=== PATIENT | male | born 1960 | race Caucasian/White ===

== ENCOUNTER 2019-03-22 19:50 | Emergency (ER) | payer MEDICAID, OTHER ==
[~2019-03-22] VITALS: Ht 185.4 cm; Wt 99.1 kg
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
--- NOTE | 2019-03-22 20:57 | NUR ---
PT SITTING UP IN GURNEY, AWAKE/ALERT. NAD NOTED. HOLDING CONVERSATION WITH FAMILY MEMBER. SPO2 >90% ON 3L BY NC. RR WNL.
[2019-03-22] MEDS: SODIUM CHLORIDE FLUSH 10ML SYR IVF ONE (21:00)
--- NOTE | 2019-03-22 21:18 | NUR ---
IV ESTABLISHED. BC X 1 DRAWN WITH IV START. LAB IN TO DRAW SECOND
[2019-03-22] MEDS ORDERED: ALBUTEROL/IPRATROPIUM 2.5MG/0.5MG, 3 ML ONE ×2 (21:29→23:27)
[2019-03-22 21:30] LABS: BASOPHILS # (AUTO) 0.04 x10^3/uL (0-0.1); BASOPHILS % (AUTO) 0 % (0-1); EOSINOPHILS # (AUTO) 0.24 x10^3/uL (0-0.4); EOSINOPHILS % (AUTO) 3 % (1-7); LYMPHOCYTES # (AUTO) 1.61 x10^3/uL (1-3.4); LYMPHOCYTES % (AUTO) 19 % (22-44); MD NO; MEAN CORPUSCULAR HEMOGLOBIN 30.8 pg (27.5-34.5); MEAN CORPUSCULAR HGB CONC 34.1 g/dL (33.2-36.2); MEAN CORPUSCULAR VOLUME 90.3 fL (81-97); MEAN PLATELET VOLUME 8.8 fL (7.4-10.4); MONOCYTES # (AUTO) 0.87 x10^3/uL (0.2-0.8); MONOCYTES % (AUTO) 10 % (2-9); NEUTROPHILS # (AUTO) 5.63 x10^3/uL (1.8-6.8); NEUTROPHILS % (AUTO) 67 % (42-75); PLATELET COUNT 143 x10^3/uL (130-400); RED BLOOD COUNT 4.95 x10^6/uL (4.38-5.82); RED CELL DISTRIBUTION WIDTH 13.3 % (9.4-14.8)
[2019-03-22] MEDS: ALBUTEROL/IPRATROPIUM 2.5MG/0.5MG, 3 ML NPPB ONE ×2 (21:35→23:00)
--- NOTE | 2019-03-22 21:36 | NUR ---
RT AT BEDSIDE
[2019-03-22 21:43] LABS: ALANINE AMINOTRANSFERASE 29 U/L (12-78); ALBUMIN 2.9 g/dL (3.4-5.0); ANION GAP 5 mmol/L (5-15); CALCIUM 8.2 mg/dL (8.5-10.1); CHLORIDE 111 mmol/L (98-107); CREATININE 0.86 mg/dL (0.7-1.3)
[2019-03-22 21:47] LABS: ALKALINE PHOSPHATASE 57 U/L (45-117); BILIRUBIN,TOTAL 0.2 mg/dL (0.2-1.0); TOTAL PROTEIN 6.3 g/dL (6.4-8.2); TROPONIN I < 0.015 ng/mL (0.000-0.045)
--- NOTE | 2019-03-22 22:27 | NUR ---
PT REPORTS 'FEELING BETTER' AFTER BREATHIG TX. RA TRIAL INITIATED.
--- NOTE | 2019-03-22 22:32 | NUR ---
DESPITE IMPROVMENT IN S/S, RA 81%.
[2019-03-22] MEDS ORDERED: methylPREDNISolone SOD SUCC 125 MG/2 ML ONE (22:58)
[2019-03-22] MEDS: methylPREDNISolone SOD SUCC 125 MG/2 ML IVP ONE (23:04)
--- NOTE | 2019-03-22 23:11 | NUR ---
DESPITE LENGTHY CONVERSATION WITH ERP REGARDING RESPIRATORY STATUS, PT ELECTING TO LEAVE AMA. PT AWARE OF S/S OF WORSENING CONDITION AND AGREES TO RETURN TO ED IF ANY OCCUR. PT MEDICATED PER EMAR. PT AGREES TO ADDITIONAL BREATHING TX. RT CALLED BY RN. AWAITING BREATHING TX FOR AMA
--- NOTE | 2019-03-22 23:27 | NUR ---
AMA SIGNED. AWAITING RT FOR TX
--- NOTE | 2019-03-22 23:55 | NUR ---
DC EDUCATION PROVIDED, PT DEMONSTRATES UNDERSTANDING. AMA SIGNED AND ON CHART. PT AMBULATED STEADILY TO DC WITH RN AND FAMILY
== END 2019-03-22 23:57 | disposition home or self-care (01) ==
LOC: ED 23:45
DX: J44.1 Chronic obstructive pulmonary disease with (acute) exacerbation (principal); R09.02 Hypoxemia; F17.210 Nicotine dependence, cigarettes, uncomplicated
CPT/HCPCS: 36415; 71045; 80053; 83880; 84484; 85025; 85379; 87040; 93005; 94640; 96374; 99284; 99406; J2930; J7620

== ENCOUNTER 2021-06-21 19:52 | Emergency (ER) | payer OTHER ==
[~2021-06-21] VITALS: Ht 182.9 cm; Wt 95.6 kg
[~2021-06-21 19:52] MED LIST: TIOT18CA INH
[2021-06-21 19:56] VITALS: BP 129/79
[2021-06-21] MEDS ORDERED: DIPH,PERTUSS(ACELL),TET VAC/PF 0.5 ML IM-VACC ONE ×2 (20:13→20:30)
[2021-06-21] MEDS ORDERED: LIDOCAINE-MPF 1%, 5ML ONE (20:19)
[2021-06-21] MEDS ORDERED: LIDOCAINE 1%, 10ML INFIL ONE (20:30)
[2021-06-21] MEDS ORDERED: NEOSPORIN OINT. PKT 1 PACKET ONE (20:59)
== END 2021-06-21 21:08 | disposition home or self-care (01) ==
LOC: ED 20:25
DX: S61.216A Laceration without foreign body of right little finger without damage to nail, initial encounter (principal); Z72.9 Problem related to lifestyle, unspecified; F17.200 Nicotine dependence, unspecified, uncomplicated; J44.9 Chronic obstructive pulmonary disease, unspecified; F17.210 Nicotine dependence, cigarettes, uncomplicated; W23.0XXA Caught, crushed, jammed, or pinched between moving objects, initial encounter; Y93.89 Activity, other specified; Y92.89 Other specified places as the place of occurrence of the external cause; Y99.8 Other external cause status
CPT/HCPCS: 12002; 90471; 90715; 99283